=== PATIENT | female | born 1950 | race Two or more races ===

== ENCOUNTER 2023-02-21 08:35 | Emergency (ER) | payer MEDICARE, OTHER, SELFPAY ==
--- NOTE | 2023-02-21 08:37 | ED.CHESTPAIN ---
HPI - Chest Pain General Chief Complaint: Skin/Abscess/Foreign Body Stated Complaint: Left Breast Pain Time Seen by Provider: 02/21/23 08:37 Source: patient Mode of arrival: ambulatory Limitations: no limitations History of Present Illness HPI narrative: Kallie is a 72-year-old female patient presenting to clinic today with complaints of left breast pain x3 days. She reports she has had pain intermittently over the last couple months however the last 3 days of been pretty constant. Has a painful lump to the inner lower left breast Related Data Home Medications Medication Instructions Recorded Confirmed No Home Medications 02/21/23 02/21/23 Allergies Allergy/AdvReac Type Severity Reaction Status Date / Time No Known Allergies Allergy Verified 02/21/23 08:39 Review of Systems Review of Systems: Pertinent positives per HPI. Patient denies any fever, chills, rash, headache, visual changes, dizziness, cough, runny nose, sore throat, shortness of breath, chest pain, palpitations, nausea, vomiting, diarrhea, constipation, abdominal pain, or any urinary issues. PMFSH Comments At the time of my signature, I reviewed and agree with the nursing past medical, surgical, social, and family history. There is no relevant family history pertinent to the patient complaint. Exam Narrative: General: Well-developed, well nourished, in no apparent distress Head: Normocephalic, atraumatic Eyes: Pupils round and reactive to light bilaterally, EOM intact, sclera and conjunctive clear, no discharge, lids normal Ears: TMs intact and clear, ear canals clear, no drainage, grossly hearing normal. Nose: Patent, no discharge, no inflammation, no sinus tenderness. Mouth: Oral pharynx normal without lesions or masses, good dentition, MMM. Neck: Supple, trachea midline, no enlargement of anterior or posterior cervical nodes, no thyroid masses palpable. Lymph: No lymphadenopathy Chest: Normal chest wall appearance, even chest rise and fall with respirations, non-tender with palpation. Breast: Symmetric, no dimpling, 2cm firm tender mass to the left medial breast around 7-8 oclock. No rash or lesions bilaterally, non-tender, no nipple discharge. Cardio: Regular rate and rhythm, s1 and s2 normal, no murmurs appreciated. Resp: Clear to auscultation bilaterally, no rhonchi, rales, wheezing or rubs. Course Course Emergency Course: Portions of this record may have been created with voice recognition software. Level of Care: Express Care Visit Vital Signs Vital signs: Vital signs reviewed MDM - Chest Pain MDM Narrative Medical decision making narrative: At the time of visit patient is resting comfortably on the exam table. Patient appears to be nontoxic. Supportive measures were discussed with the patient and they voiced understanding discharge instructions and agrees to treatment plan. Return precautions reviewed Differential Diagnosis Differential diagnosis: Likely other (Tender breast mass, breast lump, mastitis, abscess) Discharge Plan Discharge Clinical Impression: Breast lump or mass Qualifiers: Laterality: left Breast mass location: lower inner quadrant Qualified Code(s): N63.24 - Unspecified lump in the left breast, lower inner quadrant Patient Disposition: Home, Self-Care Condition: Stable Instructions: Antibiotic Form, Breast Mass (ED) Additional Instructions: Tender breast mass measuring approximately 2 cm located at 7-8 o'clock to the left breast May take Tylenol/Motrin as needed for pain Recommend follow-up with your PCP for mammogram/ultrasound orders. Prescriptions: No Action No Home Medications Follow-up/Referrals: UNKNOWN,DOCTOR [Non-Staff] - Time of Disposition: 09:02 Quality NIHSS Nursing Documentation ED NIHSS nursing documentation: reviewed/agree
[2023-02-21 08:48] VITALS: BP 136/68; PULSE 71; RESP 16; TEMP 36.3; O2SAT 100
== END 2023-02-21 09:03 | disposition home or self-care (01) ==
PROVIDERS: Emergency Provider Nurse Practitioner Family
DX: N63.0 Unspecified lump in unspecified breast (principal); H26.9 Unspecified cataract
CPT/HCPCS: 99211; G0463